=== PATIENT | male | born 1965 | race Caucasian/White ===

== ENCOUNTER 2016-10-23 17:11 | Emergency (ER) | payer MEDICAID ==
[~2016-10-23] VITALS: Ht 177.8 cm; Wt 79.4 kg
[~2016-10-23 17:11] MED LIST: DICLOFENAC 50MG50 MG PO; KEFLEX 500MG.500 MG PO; NORCO 325 MG-51 TAB PO
--- NOTE | 2016-10-23 17:39 | Emergency Room Report ---
History of Present Illness Time Seen by 1722 Presenting Problem in Triage Pt arrived:Walked Presenting Problem:LEFT KNEE PAIN NO INJURY Onset of symptoms date/time:07/13/16 or onset unknown for: Treatment Prior to Arrival: COUNCILOR Provided by: Sepsis Risk Assessment: Temp: 99.7 B/P: 122/79 MAP: 93 Pulse: 76 Resp: 20 Recent fever? N Clinical Suspician of Infection? N Mental Status: 1 - Regular (Normal Baseline) Sepsis Risk:Low Sepsis Risk Have you (or family members/close friends) recently traveled outside the [place]? N If Yes, where/when: Have you had exposure to infectious disease within the past month? N TB? Other? Specify: Source patient, RN notes reviewed, family, RN/MD Exam Limitations no limitations Comment This is a 51-year-old male presented to emergency room with LEFT knee pain for the past few months, gradually getting worse over the past 2 days to the point of him not even being able to bear weight on his LEFT lower extremity, or fully extending his LEFT knee. The patient denies any traumatic event associated with this joint pain, denies any fever, joint swelling, etc. ALLERGIES Coded Allergies: codeine (06/20/16) History Medical History General CAD? No Angina: Yes MS: No Hypertension? No Hyperlipidemia? No CHF? No DVT? No PE? No COPD? No Asthma? No Anemia? No GERD? No Gastric ulcers? No GI Bleed? No Hernia? No Thyroid Problems? No Hypothyroidism? No CVA? No Seizures? No Diabetes? No Renal Insuffiency? No End Stage Renal Disease? No UTI? No Stones? No BPH? No GB Disease: No Nephritic Syndrome? No Asplenia? No Hepatitis? No Sickle Cell Disease? No Arthritis? No Migraines? No Cataracts? No Glaucoma? No MRSA? No HIV? No TB? No Anxiety? No Depression? No Cancer? No Immunization Hx DT/Tetanus Unknown Surgical Hx Previous Surgery?Y RT WRIST BILAT HIPS LT ELBOW HEART CATH Social History Smoking Hx Smoker: Never Smoker Tobacco: No Type Chew Are you/the child exposed to second-hand smoke: No Alcohol Alcohol: No Review of Systems All Other Systems Reviewed and Negative Musculoskeletal joint pain (LEFT knee pain) Physical Exam Vital Signs Vital Signs Date Time Temp Pulse Resp B/P Pulse O2 O2 Flow FiO2 Ox Delivery Rate 10/23 1830 99.7 76 20 122/79 100 10/23 1807 99.7 76 20 122/79 100 10/23 1713 99.7 76 20 100 General Appearance normal appearance, WD/WN, mild distress Respiratory Status Yes: trachea midline, chest symmetrical, non tender chest. No: respiratory distress. Lung Sounds bilateral: normal breath sounds, lungs clear. Cardiovascular normal exam, regular rate/rhythm, no peripheral edema, no gallop, no JVD, no murmur, no rub, normal peripheral pulses Gastrointestinal normal bowel sounds, normal exam, non tender, soft, no organomegaly Extremities LEFT knee tender to palpation, positive anterior drawer test, positive Deanne maneuver, tenderness is specifically worse over the medial aspect of the LEFT knee. Neurologic alert, intraoperative neuro tech II-XII nml as tested, normal exam, oriented x 3 Mental status normal mood/affect Skin intact, normal color, warm/dry Medical Decision Making LABS/Meds/Orders Pt receiving controlled substance in ED? No Comment This on patient's physical examination and radiology findings it is likely that he has a torn meniscus. Advised patient to avoid weightbearing on her lower extremities, will place on crutches and instructed him to follow-up with one of the local orthopedic surgeons. Results/Orders Orders Procedure Date/time Status KNEE-3 VIEWS-LT 10/23 1723 Active XRAY/CT/US XRAY/CT/US XRAY knee (left) XR interpretation by reviewed by me Xray Results normal/NAD, no fracture seen Departure Departure Time of Disposition 1739 Disposition DC Home or Self Care(routine) Clinical Impression Primary Impression: Knee pain, left Qualifiers: Chronicity: acute Qualified Code: M25.562 - Pain in left knee Condition STABLE Referrals Tyshawn THAKUR,Dayron GARCIA MD, TIARRA HERNANDEZ Patient Instructions DI for Knee Pain Additional Instructions Please follow-up with one of the orthopedic surgeins listed above, call tomorrow morning in order to schedule a follow-up appointment. Take the pain medications as instructed. Discharge Counseling Counseled pt/family regarding diagnosis, test results, medications/RX, home care, follow up needs Comment Please follow-up with one of the orthopedic surgeins listed above, call tomorrow morning in order to schedule a follow-up appointment. Take the pain medications as instructed. Prescriptions Current Visit Scripts Etodolac 200 MG PO QIDP PRN pain #30 CAP ED Critical Care Critical Care No at 1938
[2016-10-23] MEDS ORDERED: ETODOLAC200 MG PO (17:41)
--- OUTSIDE RECORDS SUMMARY | 2016-10-23 17:43 | External Medical Summary Rpt ---
Author Author , FARRUKH CHADWICK Address Unknown Phone [email or web address] Care Team Providers Care Optometric Tech Name Role Phone SINGH, SINGH Unavailable Unavailable [facility], Unavailable Unavailable [facility] JR ROSANA, ROSANA, Unavailable Unavailable JR ROGELIO DUNBRA, Unavailable Unavailable ROGELIO DUNBAR [facility] Unavailable Unavailable [facility] Unavailable Unavailable H[facility]PITAL P, [facility] Unavailable Unavailable [facility] & Unavailable Unavailable [facility] & Unavailable Unavailable [facility] GLEASON BEAU, GLEASON Unavailable Unavailable BEAU GLEASON BEAU, GLEASON Unavailable Unavailable DOLLY BRUNER Unavailable Unavailable DOLLY ALBERTO Unavailable Unavailable [facility] Unavailable Unavailable ASS[facility]AT, [facility], BIAZZI NITRATOR OPERATOR [facility] Unavailable [facility] BIAZZI NITRATOR OPERATOR [facility], Unavailable Unavailable [facility] JUWAN DUCKWORTH, JUWAN Unavailable Unavailable [facility] Purpose Continuity of Care Document - 02-26-2011 through 2016 Problems Code Diagnosis DOS Provider Status R0602 SHORTNESS 06-20-2016 [facility] P R0781 PLEURODYNIA 06-20-2016 [facility] R079 CHEST PAIN 06-20-2016 [facility] R091 PLEURISY 06-20-[address] [facility] Z0100 ENCOUNTER 05-07-2016 DOLLY EXAM EYES & VISION W/O ABNORMAL FIND 82978 OTHER 10-31-2011 [facility] FATIGUE 5286 LEUKOPLAKIA 07-08-2011 GLEASON BEAU OF ORAL [place] INCLUDING TONGUE 7804 DIZZINESS 07-08-2011 G[facility] AND GIDDINESS 3814 NONSUPPRATV 06-24-2011 G[facility]ON [facility]AU OTITIS MEDIA NOT SPEC ACUT/CHRON 70873 UNSPECIFIED 06-24-2011 GLEASON BEAU SENSORINEUR AL HEARING LOSS 4785 OTHER 06-24-2011 GLEASON BEAU DISEASES OF VOCAL CORDS 46177 OTHER 06-11-2011 [facility] LUNG NOT ASSOCIAT ELSEWHERE CLASSIFIED 57223 OTHER CHEST 06-11-2011 [facility], PAIN BIAZZI NITRATOR OPERATOR [facility] 3862 VERTIGO OF 05-05-2011 [facility], CENTRAL BIAZZI NITRATOR OPERATOR ORIGIN [facility] 3532 CERVICAL 02-26-2011 LABORATORY ROOT & LESIONS NOT BIODIAGNOST ELSEWHERE ICS CLASSIFIED Medications Na ND Rx Da Fi Fi Am Da Di Ph RX Ph St me C No te ll ll ou ys ag ar # ys at rm s nt no ma ic us Or Da si cy ia de te s n re d HY 00 05 06 [address] 40 -0 -0 .0 00 L- ti OC 60 4- 2- 00 02 MA ve OD 12 20 20 24 RT ON 30 17 17 01 -A 1 95 PH CE AR TA MA NE CY NO PH #5 EN 91 5- 32 5 AM 00 04 05 20 10 00 MA Ac OX 09 -2 -1 .0 00 L- ti IC 33 1- 9- 00 07 MA ve IL 10 20 20 48 RT LI 90 17 17 38 N 5 24 PH 50 AR 0 MA MG CY CA #5 PS 91 UL E REID 00 04 05 20 5 00 MA Ac DO 90 -2 -1 .0 00 L- ti GE 46 1- 9- [address] 33 20 20 83 RT 86 17 17 91 30 0 42 PH AR MG MA CY TA BL #5 ET 91 DI 16 03 04 30 15 00 MA Ac CL 57 -2 -2 .0 00 L- ti OF 10 4- 8- 00 07 MA ve EN 20 20 20 47 RT AC 21 17 17 83 0 24 PH SO AR D MA EC CY 50 #5 91 MG TA B AM 00 12 01 20 10 00 MA Ac OX 14 -1 -1 .0 00 L- ti IC 39 6- 3- 00 07 MA ve IL 95 20 20 45 RT LI 10 16 17 91 N 1 32 PH 87 AR 5 MA MG CY TA #5 BL 91 ET BR 60 12 01 18 3 00 WA Ac OM 43 -1 -1 0. 00 L- ti PH 20 6- 3- 00 07 MA ve EN 27 20 20 0 45 RT IR 51 16 17 91 -P 6 34 PH SE AR UD MA OE CY PH ED #5 -D 91 M SY R ND 00 12 01 10 5 00 WA Ac ED 14 -1 -1 .0 00 L- ti NI 39 6- 3- 00 07 MA ve SO 73 20 20 45 RT NE 80 16 17 91 5 35 PH 20 AR MA MG CY TA #5 BL 91 ET Procedures Procedure DOS Code Location Performer Comment COMPREHEN 88964 SHE[facility] COKER SIVE 7 [facility] METABOLIC INC INC PANEL CREATINE 81658 SHEELA COKER KINASE MB 7 [facility] [place] [address] SHEELA COKER ANGIOGRAP 7 [facility] HY CHEST INC INC W/CONTRAS T/NONCONT RAST CREATINE 37645 SHE[facility] COKER KINASE 7 [facility] TOTAL INC INC ECG 64204 SHEELA COKER ROUTINE 7 [facility] ECG INC INC W/LEAST 12 LDS TRCG ONLY W/O I&R FIBRIN 37258 SHEELA COKER DGRADJ 7 [facility] PRODUCTS INC INC D-DIMER QUAL/SEMI NICHOLAS PROTHROMB 39515 SHEELA COKER IN TIME 7 [facility] INC INC NATRIURET 38589 SHEELA COKER IC 7 [facility] PEPTIDE INC INC RADIOLOGI 45308 SHEELA COKER C EXAM 7 [facility] CHEST 2 INC INC VIEWS FRONTAL&L ATERAL ECG 20993 [facility] ROUTINE 7 PHYSICIAN JR ECG S, PLLC W/LEAST 12 LDS [place] [address] SHEELA COKER TROPONIN 7 [facility] QUANTITAT INC INC LEE BLOOD 32751 SHEELA COKER COUNT 7 [facility] COMPLETE INC INC AUTO&AUTO DIFRNTL WBC CT THORAX 27253 [facility] 7 MEDICAL W/CONTRAS IMAGING T ASS MATERIAL UNCLASSIF J3490 SHEELA COKER IED DRUGS 7 [facility] INC INC THROMBOPL 40000 SHEELA COKER ASTIN 7 [facility] TIME INC INC PARTIAL PLASMA/WH OLE BLOOD DETERMINA 16944 DOLLY ROJO 7 REFRACTIV E STATE OPHTH 22141 [facility] 7 XM&EVAL COMPRE NEW PT 1/> VST COMPRE 49882 ROSIBEL GLEASON AUDIOMETR 2 [facility] Y THRESHOLD EVAL SP RECOGNIJ TYMPANOME 90553 ROSIBEL GLEASON TRY 2 [facility] RADIOLOGI 64146 [facility], C EXAM 2 BIAZZI NITRATOR OPERATOR BIAZZI NITRATOR OPERATOR CHEST 2 [facility] VIEWS CO HOS CO HOS FRONTAL&[place] [address] [facility] HEAD/BRAI 2 EIDER MANJINDER N W/O RADIOLOGY CONTRAST ASSOCIAT MATERIAL BLOOD 86621 LABORATOR LABORATOR COUNT 1 Y & Y & COMPLETE BIODIAGNO BIODIAGNO AUTO&AUTO STICS STICS DIFRNTL WBC COMPREHEN 75070 LABORATOR LABORATOR SIVE 1 Y & Y & METABOLIC BIODIAGNO BIODIAGNO PANEL STICS STICS CYANOCOBA 01915 LABORATOR LABORATOR REID 1 Y & Y & VITAMIN BIODIAGNO BIODIAGNO B-[address] [place] [address] LABORATOR LABORATOR FOLIC 1 Y & Y & ACID BIODIAGNO BIODIAGNO SERUM STICS STICS Encounters Encounter Start End Date Code Location Performer Type Date HOSPITAL [facility] - 7 7 [facility] OUTPATIEN INC T EMERGENCY 91487 [facility], 7 7 PHYSICIAN [facility] S, [facility] T VISIT HIGH/URGE NT SEVERITY EMERGENCY 76135 [facility] 7 7 [facility] T VISIT MODERATE SEVERITY OFFICE 88562 VICTOR HUGO [facility] OUTPATIEN 2 2 CLINIC GUCCI T VISIT PSC 15 MINUTES OFFICE 29034 GLEASON GLEASON OUTPATIEN 2 2 [facility] T VISIT 15 MINUTES OFFICE 44716 GLEASON GLEASON OUTPATIEN 2 2 [facility] T NEW 30 MINUTES HOSPITAL [facility], - 2 2 BIAZZI NITRATOR OPERATOR OUTPATIEN [facility], - 2 2 BIAZZI NITRATOR OPERATOR OUTPATIEN [facility] T [facility]
--- OUTSIDE RECORDS SUMMARY | 2016-10-23 17:43 | External Medical Summary Rpt ---
Author Author , FARRUKH CHADWICK Address Unknown Phone Care Team Providers Care Slitter Creaser Slotter Operator Name Role Phone SINGH, SINGH Unavailable Unavailable [facility], Unavailable Unavailable [facility] JR ROSANA, ROSANA, Unavailable Unavailable JR ROGELIO DUNBAR, Unavailable Unavailable ROGELIO DUNBAR [facility] Unavailable Unavailable INC, [facility] Unavailable Unavailable HOSPITAL P, [facility] Unavailable Unavailable [facility], [facility] & Unavailable Unavailable [facility] & Unavailable Unavailable [facility] GLEASON BEAU, GLEASON Unavailable Unavailable BEAU GLEASON BEAU, GLEASON Unavailable Unavailable DOLLY BRUNER Unavailable Unavailable DOLLY ALBERTO Unavailable Unavailable [facility] Unavailable Unavailable ASSOCIAT, [facility], CRANE HELPER [facility] Unavailable [facility]available [facility] CRANE HELPER [facility], Unavailable Unavailable [facility] JUWAN DUCKWORTH, JUWAN Unavailable Unavailable [facility] Purpose Continuity of Care Document - 02-26-2011 through 2016 Problems Code Diagnosis DOS Provider Status R0602 SHORTNESS 06-20-2016 [facility] P R0781 PLEURODYNIA 06-20-2016 [facility] R079 CHEST PAIN 06-20-2016 [facility] R091 PLEURISY 06-20-2016 [facility] GON[facility]ALE[facility] Z0100 ENCOUNTER 05-07-2016 [facility] EXAM EYES & VISION W/O ABNORMAL FIND 68253 OTHER 10-31-2011 [facility] FATIGUE 5286 LEUKOPLAKIA 07-08-2011 GLEASON BEAU OF ORAL [place]UC[place] INCLUDING TONGUE 7804 DIZZINESS 07-08-2011 GLEASON BEAU AND GIDDINESS 3814 NONSUPPRATV 06-24-2011 GLE[facility]ON BEAU OTITIS MEDIA NOT SPEC ACUT/CHRON 98902 UNSPECIFIED 06-24-2011 GLE[facility]ON BEAU SENSORINEUR AL HEARING LOSS 4785 OTHER 06-24-2011 GLEASON BEAU DISEASES OF VOCAL CORDS 35467 OTHER 06-11-2011 [place] [facility] LUNG NOT ASSOCIAT ELSEWHERE CLASSIFIED 51427 OTHER CHEST 06-11-2011 [facility], PAIN CRANE HELPER [facility] 3862 VERTIGO OF 05-05-2011 [facility], CENTRAL CRANE HELPER ORIGIN [facility] 3532 CERVICAL 02-26-2011 [...] HY 00 05 06 [address] 40 -0 -0 .0 00 L- ti OC 60 4- 2- 00 02 MA ve OD 12 20 20 24 RT ON 30 17 17 01 -A 1 95 PH CE AR TA MA AK CY NO PH #5 EN 91 5- 32 5 AM 00 04 05 20 10 00 MD Ac OX 09 -2 -1 .0 00 L- ti IC 33 1- 9- 00 07 MA ve IL 10 20 20 48 RT LI 90 17 17 38 N 5 24 PH 50 AR 0 MA MG CY CA #5 PS 91 UL E REID 00 04 05 20 5 00 MD Ac DO 90 -2 -1 .0 00 L- ti GE 46 1- 9- [address] 33 20 20 83 RT 86 17 17 91 30 0 42 PH AR MG MA CY TA BL #5 ET 91 DI 16 03 04 30 15 00 MD Ac CL 57 -2 -2 .0 00 L- ti OF 10 4- 8- 00 07 MA ve EN 20 20 20 47 RT AC 21 17 17 83 0 24 PH SO AR D MA EC CY 50 #5 91 MG TA B AM 00 12 01 20 10 00 MD Ac OX 14 -1 -1 .0 00 [...] ED #5 -D 91 M SY R HI 00 12 01 10 5 00 WA Ac ED 14 -1 -1 .0 00 L- ti NI 39 6- 3- 00 07 MA ve SO 73 20 20 45 RT NE 80 16 17 91 5 35 PH 20 AR MA MG CY TA #5 BL 91 ET Procedures Procedure DOS Code Location Performer Comment COMPREHEN 19688 SHEELA COKER SIVE 7 [facility] METABOLIC INC INC PANEL CREATINE 16089 SHEELA COKER KINASE MB 7 [facility] [place] [address] SHEELA COKER ANGIOGRAP 7 [facility] HY CHEST INC INC W/CONTRAS T/NONCONT RAST CREATINE 24951 SHEELA COKER KINASE 7 [facility] TOTAL INC INC ECG 57070 SHEELA COKER ROUTINE 7 [facility] ECG INC INC W/LEAST 12 LDS TRCG ONLY W/O I&R FIBRIN 88443 SHEELA COKER DGRADJ 7 [facility] PRODUCTS INC INC D-DIMER QUAL/SEMI NICHOLAS PROTHROMB 10087 SHEELA COKER IN TIME 7 [facility] INC INC NATRIURET 81860 SHEELA COKER IC 7 [facility] PEPTIDE INC INC RADIOLOGI 92697 SHEELA COKER C EXAM 7 [facility] CHEST 2 INC INC VIEWS FRONTAL&L ATERAL ECG 99752 SEP[facility] ROUTINE 7 PHYSICIAN JR ECG S, PLLC W/LEAST 12 LDS I&[place] [address] SHEELA COKER TROPONIN 7 [facility] QUANTITAT INC INC LEE BLOOD 45697 SHEELA COKER COUNT 7 [facility] COMPLETE INC INC AUTO&AUTO DIFRNTL WBC CT THORAX 51302 [facility] 7 MEDICAL W/CONTRAS IMAGING T ASS MATERIAL UNCLASSIF J3490 SHEELA COKER IED DRUGS 7 [facility] INC INC THROMBOPL 71738 SHEELA COKER ASTIN 7 [facility] TIME INC INC PARTIAL PLASMA/WH OLE BLOOD DETERMINA 77900 DOLLY ROJO 7 REFRACTIV E STATE OPHTH 22466 [facility] 7 XM&EVAL COMPRE NEW PT 1/> VST COMPRE 51238 ROSIBEL GLEASON AUDIOMETR 2 [facility] Y THRESHOLD EVAL SP RECOGNIJ TYMPANOME 24925 ROSIBEL GLEASON TRY 2 [facility] RADIOLOGI 90005 [facility], [facility] INC, C EXAM 2 CRANE HELPER CRANE HELPER CHEST 2 [facility]I VIEWS CO HOS CO HOS FRONTAL&[place] [address] [facility] HEAD/BRAI 2 EIDER MANJINDER N W/O RADIOLOGY CONTRAST ASSOCIAT MATERIAL BLOOD 29517 LABORATOR LABORATOR COUNT 1 Y & Y & COMPLETE BIODIAGNO BIODIAGNO AUTO&AUTO STICS STICS DIFRNTL WBC COMPREHEN 02127 LABORATOR LABORATOR SIVE 1 Y & Y & METABOLIC BIODIAGNO BIODIAGNO PANEL STICS STICS CYANOCOBA 71417 LABORATOR LABORATOR REID 1 Y & Y & VITAMIN BIODIAGNO BIODIAGNO B-[address] [place] [address] LABORATOR LABORATOR FOLIC 1 Y & Y & ACID BIODIAGNO BIODIAGNO SERUM STICS STICS Encounters Encounter Start End Date Code Location Performer Type Date HOSPITAL SHEELA - 7 7 [facility] OUTPATIEN INC T EMERGENCY 19833 [facility], 7 7 PHYSICIAN [facility], [facility] T VISIT HIGH/URGE NT SEVERITY EMERGENCY 60672 [facility] 7 7 [facility] VISIT MODERATE SEVERITY OFFICE 82958 VICTOR HUGO ECHEVERRIA OUTPATIEN 2 2 CLINIC GUCCI T VISIT PSC 15 MINUTES OFFICE 56138 GLEASON GLEASON OUTPATIEN 2 2 [facility] T VISIT 15 MINUTES OFFICE 47355 GLEASON GLEASON OUTPATIEN 2 2 [facility] T NEW 30 MINUTES [facility], - 2 2 CRANE HELPER OUTPATIEN [facility] T [facility], - 2 2 CRANE HELPER OUTPATIEN [facility] T CO HOS
--- OUTSIDE RECORDS SUMMARY | 2016-10-23 17:43 | External Medical Summary Rpt ---
Author Author , FARRUKH Roa ALEXANDERJAVIER Address Unknown Phone [email or web address] Team Providers Care Inbound Sales Representative Name Role Phone MAJO KASPER Unavailable Unavailable SINGH, SINGH Unavailable Unavailable [facility], Unavailable Unavailable [facility] AMOR HERNANDEZ, AMOR Unavailable Unavailable MARY WAYNE JR, ROSANA, Unavailable Unavailable JR ROGELIO DUNBAR, Unavailable Unavailable ROGELIO DUNBAR [facility] Unavailable Unavailable INC, [facility] Unavailable Unavailable H[facility]PITAL P, [facility] Unavailable Unavailable [facility], [facility] & Unavailable Unavailable [facility] & Unavailable Unavailable [facility] GLEASON BEAU, GLEASON Unavailable Unavailable BEAU GLEASON BEAU, GLEASON Unavailable Unavailable [facility]AU DOLLY ALBERTO Unavailable Unavailable DOLLY ALBERTO Unavailable Unavailable [facility] Unavailable Unavailable ASSOCIAT, [facility] Unavailable [facility]available [facility], [facility], Unavailable Unavailable [facility], [facility] GONZALEZ, [facility] JUWAN LYN Unavailable Unavailable GUCCI Gómez MD, Unavailable Unavailable Jose Gómez MD Purpose Continuity of Care Document - 02-26-2011 through 2016 Problems Code Diagnosis DOS Provider Status R0602 SHORTNESS 06-20-2016 [facility] P R0781 PLEURODYNIA 06-20-2016 [facility] R079 CHEST PAIN 06-20-2016 [facility] R091 PLEURISY 06-20-2016 [facility] GONZALEZ, [facility] Z0100 ENCOUNTER 05-07-2016 [facility] EXAM EYES & VISION W/O ABNORMAL FIND 413.9 413.9 10-05-2012 [facility] NEC/NOS 786.50 786.50 10-05-2012 Sheela CHEST PAIN [facility] 07856 OTHER 10-31-2011 [facility] FATIGUE 5286 LEUKOPLAKIA 07-08-2011 GLEASON BEAU OF ORAL [place]UCOS[place] INCLUDING TONGUE 7804 DIZZINESS 07-08-2011 [facility]AU AND GIDDINESS 3814 NONSUPPRATV 06-24-2011 G[facility]ON [facility]AU OTITIS MEDIA NOT SPEC ACUT/CHRON 90196 UNSPECIFIED 06-24-2011 G[facility]ON BEAU SENSORINEUR AL HEARING LOSS 4785 OTHER 06-24-2011 GLEASON BEAU DISEASES OF VOCAL CORDS 67915 OTHER 06-11-2011 [facility] DISEASES OF RADIOLOGY LUNG NOT ASSOCIAT ELSEWHERE CLASSIFIED 12848 OTHER CHEST 06-11-2011 [facility] PAIN BOOKING AGENT [facility] 3862 VERTIGO OF 05-05-2011 [facility], CENTRAL BOOKING AGENT ORIGIN [facility] 3532 CERVICAL 02-26-2011 LABORATORY ROOT & LESIONS NOT BIODIAGNOST ELSEWHERE ICS CLASSIFIED K80.20 CALCULUS OF GALLBLADDER W/O CHOLECYSTIT IS W/O OBSTRUCTION R09.1 PLEURISY R31.9 HEMATURIA, UNSPECIFIED Allergies, Adverse Reactions, Alerts Type Propensity to adverse reactions to drug Adverse Reaction to Substance Substance Reaction Severity Codeine NA-NAUSEA Unknown Medications Na ND Rx Da Fi Fi Am Da Di Ph RX Ph St me C No te ll ll ou ys ag ar # ys at rm s nt no ma ic us Or Da si cy ia de te s n re d HY 00 05 06 [address] 40 -0 -0 .0 00 L- ti OC 60 4- 2- 00 02 MA ve OD 12 20 20 24 RT ON 30 17 17 01 -A 1 95 PH CE AR TA MA AK CY NO PH #5 EN 91 5- 32 5 AM 00 04 05 20 10 00 KS Ac OX 09 -2 -1 .0 00 L- ti IC 33 1- 9- 00 07 MA ve IL 10 20 20 48 RT LI 90 17 17 38 N 5 24 PH 50 AR 0 MA MG CY CA #5 PS 91 UL E REID 00 04 05 20 5 00 KS Ac DO 90 -2 -1 .0 00 L- ti GE 46 1- 9- [address] 33 20 20 83 RT 86 17 17 91 30 0 42 PH AR MG MA CY TA BL #5 ET 91 DI 16 03 04 30 15 00 KS Ac CL 57 -2 -2 .0 00 L- ti OF 10 4- 8- 00 07 MA ve EN 20 20 20 47 RT AC 21 17 17 83 0 24 PH SO AR D MA EC CY 50 #5 91 MG TA B AM 00 12 01 20 10 00 [place] Ac OX 14 -1 -1 .0 00 [...] ED #5 -D 91 M SY R LA 00 12 01 10 5 00 WA Ac ED 14 -1 -1 .0 00 L- ti NI 39 6- 3- 00 07 MA ve SO 73 20 20 45 RT NE 80 16 17 91 5 35 PH 20 AR MA MG CY TA #5 BL 91 ET Sa 63 07 0 No li 80 -0 ne 70 9- Lo 10 20 ng Fl 07 13 er us 5 h Ac 10 ti ML ve Sy ri ng e 66 07 0 No PI 55 -0 RI 30 9- Lo N 00 20 ng 32 10 13 er 5 1 MG Ac ti TA ve BL ET Ni 00 07 0 No tr 08 -0 og 81 9- Lo ly 55 20 ng ce 24 13 er ri 9 n Ac 1 ti In ve ch Oi nt Ud p FA 63 07 0 No MO 32 -0 TI 30 9- Lo DI 73 20 ng NE 91 13 er 2 20 Ac ti MG ve /2 ML AL BA [address] 40 -0 ER 91 9- Lo IO [address] 60 13 er AT 5 IC Ac ti SA ve LI NE AL ME 00 07 0 No TO 40 -0 CL 93 9- Lo OP 41 20 ng RA 40 13 er AK 1 DE Ac ti 10 ve MG /2 ML AL Vital Signs 10-05-2012 09:04 Name Value Interpretat Reference Comment ion Range Body 98.0 [degF] Temperature BP 49 mm[Hg] Diastolic BP Systolic 114 mm[Hg] Heart 64 /min Rate/Pulse O2% 98 % Respiratory 20 /min Rate 10-05-2012 06:25 Name Value Interpretat Reference Comment ion Range BP 77 mm[Hg] Diastolic BP Systolic 123 mm[Hg] Heart 57 /min Rate/Pulse Respiratory 20 /min Rate 10-05-2012 06:04 Name Value Interpretat Reference Comment ion Range O2% 100 % Results Labs Lab Lab Date Result Refere Interp Status Commen Order Detail nces retati t Range on COMPREHENSIVE METABOLIC PANEL (10-05-2012 06:06) Glucose 100 74-106 complet 013 mg/dL ed Bld-mCn 06:06 c BUN 23 7-18 complet Bld-mCn 013 mg/dL ed c 06:06 Creat 1.0 0.8-1.3 complet SerPl-m 013 mg/dL ed Cnc 06:06 ESTIMAT 93 50-200 complet ED 013 ML/MIN ed CREATIN 06:06 INE CLEARAN CE GFR 80 Greater complet (ESTIMA 013 ML/MIN than ed JOHANNA) 06:06 60 Sodium 139 136-145 complet SerPl-s 013 mmoL/L ed Cnc 06:06 Potassi 3.9 3.5-5.1 complet um 013 mmoL/L ed SerPl-s 06:06 Cnc Chlorid 103 98-107 complet e 013 mmoL/L ed SerPl-s 06:06 Cnc CO2 29 21.0-32 complet SerPl-s 013 mmoL/L .0 ed Cnc 06:06 Calcium 8.8 8.5-10. complet 013 mg/dL 1 ed SerPl-m 06:06 Cnc Prot 6.9 6.4-8.2 complet SerPl-m 013 gm/dL ed Cnc 06:06 Albumin 4.0 3.4-5.0 complet 013 gm/dL ed SerPl-m 06:06 Cnc Globuli 2.9 1.3-3.2 complet n 013 gm/dL ed Ser-mCn 06:06 c Albumin 1.4 UNK 1.1-1.8 complet /Glob 013 ed SerPl-m 06:06 Rto Bilirub 0.7 0.2-1.0 complet 013 mg/dL ed SerPl-m 06:06 Cnc AST 10 U/L 15-37 complet SerPl-c 013 ed Cnc 06:06 ALT 34 U/L 30-65 complet SerPl-c 013 ed Cnc 06:06 ALP 93 U/L 50-136 complet SerPl-c 013 ed Cnc 06:06 CBC with AUTO DIFF (10-05-2012 06:06) WBC # 09-2 6.9 4.8-10. complet Bld 013 K/MM3 8 ed Auto 06:06 RBC # 09-2 4.64 4.6-6.2 complet Bld 013 M/mm3 ed Auto 06:06 Hgb 15.0 14.1-18 complet Bld-mCn 013 g/dL .0 ed c 06:06 Hct Fr 44.0 % 42.0-52 complet Bld 013 .0 ed 06:06 MCV RBC 94.9 fl 82.2-97 complet 013 .8 ed 06:06 MCH RBC 32.3 pg 27-31.2 complet Qn 013 ed Auto 06:06 MEAN 34.1 31.8-35 complet CORPUSC 013 g/dl .4 ed ULAR 06:06 HGB CONC RDW RBC 12.6 % 11.5-17 complet Auto 013 .5 ed 06:06 Platele 304 142-424 complet t Bld 013 K/mm3 ed Ql 06:06 Manual MEAN 7.2 fl 7.4-10. complet PLATELE 013 4 ed T 06:06 VOLUME Granulo 53.1 % 37.0-80 complet cytes 013 .0 ed Fr Bld 06:06 Auto LYMPH % 34.1 % 10-50 complet 013 ed 06:06 Monocyt 5.4 % 1.7-9.3 complet es Fr 013 ed Bld 06:06 Auto Eosinop 5.9 % 0.1-12. complet hil Fr 013 0 ed Bld 06:06 Auto Basophi 1.4 % 0.1-2.0 complet ls Fr 013 ed Bld 06:06 Auto Granulo 07-09-2 3.7 1.3-8.0 complet cytes # 013 K/mm3 ed Bld 06:06 Auto Lymphoc 10-05-2 2.4 0.7-4.5 complet ytes Fr 013 K/mm3 ed Bld 06:06 Auto Monocyt 10-05-2 0.4 0.1-1.0 complet es # 013 K/mm3 ed Bld 06:06 Auto Eosinop 10-05-2 0.4 0.0-0.4 complet hil # 013 K/mm3 ed Bld 06:06 Auto Basophi 10-05-2 0.1 0-0.2 complet ls # 013 K/MM3 ed Bld 06:06 Auto Procedures Procedure [place] [address] SHEELA COKER ANGIOGRAP 7 [facility] HY CHEST INC INC W/CONTRAS T/NONCONT RAST COMPREHEN 38953 SHEELA COKER SIVE 7 [facility] METABOLIC INC INC PANEL CREATINE 11925 SHEELA COKER KINASE MB 7 [facility] FRACTION INC INC ONLY FIBRIN 74455 SHEELA COKER DGRADJ 7 [facility] PRODUCTS INC INC D-DIMER QUAL/SEMI NICHOLAS PROTHROMB 47113 SHEELA COKER IN TIME 7 [facility] INC INC ECG 90598 SHEELA COKER ROUTINE 7 [facility] ECG INC INC W/LEAST 12 LDS TRCG ONLY W/O I&R CREATINE 66954 SHEELA COKER KINASE 7 [facility] [place] [address] SHEELA COKER TROPONIN 7 [facility] QUANTITAT INC INC LEE BLOOD 94836 SHEELA COKER COUNT 7 [facility] COMPLETE INC INC AUTO&AUTO DIFRNTL WBC RADIOLOGI 92129 [place] [facility] EXAM 7 MEDICAL CHEST 2 IMAGING VIEWS ASS FRONTAL&L ATERAL ECG 88025 SHEELA KASPER ROUTINE 7 [facility] W/LEAST P 12 LDS I&R ONLY NATRIURET 98247 SHEELA COKER IC 7 [facility] PEPTIDE INC INC THROMBOPL 79627 SHEELA COKER ASTIN 7 [facility] TIME INC INC PARTIAL PLASMA/WH OLE BLOOD CT THORAX [address]4076 [facility] S[facility]H 7 MEDICAL W/CONTRAS IMAGING T ASS MATERIAL UNCLASSIF J3490 SHEELA COKER IED DRUGS 7 [facility] INC INC DETERMINA 51738 DOLLY ALBERTO TION 7 [facility] 79808 [facility] 7 XM&EVAL COMPRE NEW PT 1/> VST COMPRE 63497 ROSIBEL GLEASON AUDIOMETR 2 [facility] Y THRESHOLD EVAL SP RECOGNIJ TYMPANOME 38144 RSOIBEL GLEASON TRY 2 [facility] RADIOLOGI 47302 [facility] C EXAM 2 MARY CHEST 2 RADIOLOGY VIEWS ASSOCIAT FRONTAL&[place] [address] [employer] HEAD/BRAI 2 EIDER MANJINDER N W/O RADIOLOGY CONTRAST ASSOCIAT MATERIAL BLOOD 46403 LABORATOR LABORATOR COUNT 1 Y & Y & COMPLETE BIODIAGNO BIODIAGNO AUTO&AUTO STICS STICS DIFRNTL WBC CYANOCOBA 59655 LABORATOR LABORATOR REID 1 Y & Y & VITAMIN BIODIAGNO BIODIAGNO B-12 [place] [address] LABORATOR LABORATOR FOLIC 1 Y & Y & ACID BIODIAGNO BIODIAGNO SERUM STICS STICS COMPREHEN 95480 LABORATOR LABORATOR SIVE 1 Y & Y & METABOLIC BIODIAGNO BIODIAGNO PANEL STICS STICS Encounters Encounter Start End Date Code Location Performer Type Date EMERGENCY 13320 SHEELA 7 7 [facility] DEPARTMEN INC T VISIT MODERATE [facility]VERITY HOSPITAL SHEELA - 7 7 [facility] OUTPATIEN INC T EMERGENCY 39597 Any MENDOZA 7 PHYSICIAN [facility] S, [facility] T VISIT HIGH/URGE NT SEVERITY Emergency VIVEK Gómez MD (ER) 3 05:50 3 09:15 [facility] OFFICE 90572 [facility] OUTPATIEN 2 2 CLINIC GUCCI T VISIT PSC 15 MINUTES OFFICE 55205 ROSIBEL GLEASON OUTPATIEN 2 2 [facility] T VISIT 15 MINUTES OFFICE 59432 GLEASON GLEASON OUTPATIEN 2 2 [facility] T NEW 30 MINUTES [facility], - 2 2 BOOKING AGENT OUTPATIEN [facility] T [facility], - 2 2 BOOKING AGENT OUTPATIEN CHIDI T CO HOS
--- OUTSIDE RECORDS SUMMARY | 2016-10-23 17:43 | External Medical Summary Rpt ---
Author Author , FARRUKH Roa ALEXANDERJAVIER Address Unknown Phone [email or web address] Care Team Providers Care Director Of Clinical Applications Name Role Phone MAJO KASPER Unavailable Unavailable SINGH, SINGH Unavailable [facility], [facility] AMOR HERNANDEZ, AMOR Unavailable Unavailable MARY WAYNE JR, ROSANA, Unavailable Unavailable JR ROGELIO DUNBAR, Unavailable Unavailable ROGELIO DUNBAR [facility] Unavailable Unavailable INC, [facility] Unavailable Unavailable HOSPITAL P, [facility] Unavailable Unavailable [facility], [facility] & Unavailable Unavailable [facility] & Unavailable Unavailable [facility] GLEASON BEAU, GLEASON Unavailable Unavailable BEAU GLEASON BEAU, GLEASON Unavailable Unavailable [facility] DOLLY ALBERTO Unavailable Unavailable DOLLY ALBERTO Unavailable Unavailable [facility] Unavailable Unavailable ASSOCIAT, [facility], SENIOR RISK ANALYST [facility] Unavailable Unavailable [facility], [facility] SENIOR RISK ANALYST [facility], Unavailable Unavailable [facility], [facility] GONZALEZ, [facility] JUWAN LYN Unavailable Unavailable GUCCI Gómez MD, Unavailable Unavailable Jose Gómez MD Purpose Continuity of Care Document - 02-26-2011 through 2016 Problems Code Diagnosis DOS Provider Status R0602 SHORTNESS 06-20-2016 [facility] P R0781 PLEURODYNIA 06-20-2016 [facility] R079 CHEST PAIN 06-20-2016 [facility] R091 PLEURISY 06-20-2016 [facility] GONZALEZ, [facility] Z0100 ENCOUNTER 05-07-2016 [facility] EXAM EYES & VISION W/O ABNORMAL FIND 413.9 413.9 10-05-2012 [facility] NEC/NOS 786.50 786.50 10-05-2012 Sheela CHEST PAIN [facility] [address]4825 OTHER 10-31-2011 [facility] FATIGUE 5286 LEUKOPLAKIA 07-08-2011 GLEASON BEAU OF ORAL [place]UCOSA INCLUDING TONGUE 7804 DIZZINESS 07-08-2011 GLEASON BEAU AND GIDDINESS 3814 NONSUPPRATV 06-24-2011 [facility] OTITIS MEDIA NOT SPEC ACUT/CHRON 76573 UNSPECIFIED 06-24-2011 GLE[facility]ON BEAU SENSORINEUR AL HEARING LOSS 4785 OTHER 06-24-2011 GLEASON BEAU DISEASES OF VOCAL CORDS 16343 OTHER 06-11-2011 [facility] DISEASES OF RADIOLOGY LUNG NOT ASSOCIAT ELSEWHERE CLASSIFIED 18446 OTHER CHEST 06-11-2011 [facility], PAIN SENIOR RISK ANALYST [facility] 3862 VERTIGO OF 05-05-2011 [facility], CENTRAL SENIOR RISK ANALYST ORIGIN [facility] 3532 CERVICAL 02-26-2011 [...] HY 00 05 06 [address] -0 -0 .0 00 L- ti OC 60 4- 2- 00 02 MA ve OD 12 20 20 24 RT ON 30 17 17 01 -A 1 95 PH CE AR TA MA MN CY NO PH #5 EN 91 5- 32 5 AM 00 04 05 20 10 00 [place] Ac OX 09 -2 -1 .0 00 L- ti IC 33 1- 9- 00 07 MA ve IL 10 20 20 48 RT LI 90 17 17 38 N 5 24 PH 50 AR 0 MA MG CY CA #5 PS 91 UL E REID 00 04 05 20 5 00 [place] Ac DO 90 -2 -1 .0 00 L- ti GE 46 1- 9- [address] 33 20 20 83 RT 86 17 17 91 30 0 42 PH AR MG MA CY TA BL #5 ET 91 DI 16 03 04 30 15 00 [place] Ac CL 57 -2 -2 .0 00 [...] ED #5 -D 91 M SY R GA 00 12 01 10 5 00 WA [...] 41 20 ng RA 40 13 er MN 1 DE Ac ti 10 ve MG [...] Procedure [place] [address] SHEELA COKER ANGIOGRAP 7 [facility] HY CHEST INC INC W/CONTRAS T/NONCONT RAST COMPREHEN 39781 SHEELA COKER SIVE 7 [facility] METABOLIC INC INC PANEL CREATINE 84879 SHEELA COKER KINASE MB 7 [facility] FRACTION INC INC ONLY FIBRIN 01393 SHEELA COKER DGRADJ 7 [facility] PRODUCTS INC INC D-DIMER QUAL/SEMI NICHOLAS PROTHROMB 35214 SHEELA COKER IN TIME 7 [facility] INC INC ECG 16645 SHEELA COKER ROUTINE 7 [facility] ECG INC INC W/LEAST 12 LDS TRCG ONLY W/O I&R CREATINE 67138 SHEELA COKER KINASE 7 [facility] [address] SHEELA COKER TROPONIN 7 [facility] QUANTITAT INC INC LEE BLOOD 98518 SHEELA COKER COUNT 7 [facility] COMPLETE INC INC AUTO&AUTO DIFRNTL WBC RADIOLOGI 58203 [place] [facility] EXAM 7 MEDICAL CHEST 2 IMAGING VIEWS ASS FRONTAL&L ATERAL ECG 09064 SHEELA KASPER ROUTINE 7 [facility] W/LEAST P 12 LDS I&R ONLY NATRIURET 29716 SHEELA COKER IC 7 [facility] PEPTIDE INC INC THROMBOPL 74731 SHEELA COKER ASTIN 7 [facility] TIME INC INC PARTIAL PLASMA/WH OLE BLOOD CT THORAX 77550 [facility]INGH 7 MEDICAL W/CONTRAS IMAGING T ASS MATERIAL UNCLASSIF J3490 SHEELA COKER IED DRUGS 7 [facility] INC INC DETERMINA 59530 DOLLY ALBERTO TION 7 REFRACTIV E STATE OPHTH 78352 [facility] 7 XM&EVAL COMPRE NEW PT 1/> VST COMPRE 41383 ROSIBEL GLEASON AUDIOMETR 2 [facility] Y THRESHOLD EVAL SP RECOGNIJ TYMPANOME 73749 ROSIBEL GLEASON TRY 2 [facility] RADI[facility] 75105 [facility] C EXAM 2 MARY CHEST 2 RADIOLOGY VIEWS ASSOCIAT FRONTAL&[place] [address] [facility] HEAD/BRAI 2 EIDER MANJINDER N W/O RADIOLOGY CONTRAST ASSOCIAT MATERIAL BLOOD 25671 LABORATOR LABORATOR COUNT 1 Y & Y & COMPLETE BIODIAGNO BIODIAGNO AUTO&AUTO STICS STICS DIFRNTL WBC CYANOCOBA 54523 LABORATOR LABORATOR REID 1 Y & Y & VITAMIN BIODIAGNO BIODIAGNO B-[address] [place] [address] LABORATOR LABORATOR FOLIC 1 Y & Y & ACID BIODIAGNO BIODIAGNO SERUM STICS STICS COMPREHEN 70464 LABORATOR LABORATOR SIVE 1 Y & Y & METABOLIC BIODIAGNO BIODIAGNO PANEL STICS STICS Encounters Encounter Start End Date Code Location Performer Type Date EMERGENCY 03950 SHEELA 7 7 [facility] DEPARTMEN INC T VISIT MODERATE SEVERITY HOSPITAL SHEELA - 7 7 [facility] OUTPATIEN INC T EMERGENCY 83135 Any MENDOZA 7 PHYSICIAN [facility], [facility] T VISIT HIGH/URGE NT SEVERITY Emergency VIVEK Gómez MD (ER) 3 05:50 3 09:15 [facility] OFFICE 88515 [facility] OUTPATIEN 2 2 CLINIC GUCCI T VISIT PSC 15 MINUTES OFFICE 34431 ROSIBEL GLEASON OUTPATIEN 2 2 [facility] T VISIT 15 MINUTES OFFICE 96413 GLEASON GLEASON OUTPATIEN 2 2 [facility] T [facility], - 2 2 SENIOR RISK ANALYST OUTPATIEN [facility]I T [facility] INC, - 2 2 SENIOR RISK ANALYST OUTPATIEN CHIDI T CO HOS
--- OUTSIDE RECORDS SUMMARY | 2016-10-23 17:44 | External Medical Summary Rpt ---
Demographics Preferred Language Qatari Marital Status Unknown Baptism Affiliation Unknown Race Unknown Ethnic Group Unknown Author Author , FARRUKH CHADWICK Address Unknown Phone Immunization Unable to retrieve immunization data due to connection failure with Immunization Registry. Please try again later.
--- OUTSIDE RECORDS SUMMARY | 2016-10-23 17:44 | External Medical Summary Rpt ---
Author Author FARRUKH [place], FARRUKH [employer] Organization [employer] Address Unknown Phone Unavailable
--- OUTSIDE RECORDS SUMMARY | 2016-10-23 17:44 | External Medical Summary Rpt ---
Demographics Preferred Language Portuguese Marital Status Unknown Mu-Ism Affiliation Unknown Race Unknown Ethnic Group Unknown Author Author , FARRUKH CHADWICK Address Unknown Phone Immunization Unable to retrieve immunization data due to connection failure with Immunization Registry. Please try again later.
[2016-10-23 18:30] VITALS: BP 122/79
--- NOTE | 2016-10-23 19:40 | RADIOLOGY REPORT PS360 ---
KNEE-3 VIEWS-LT HISTORY: Left knee pain pain ORDERING PHYSICIAN: Ever Thakkar MD PATIENT AGE: 51 years COMPARISON: None FINDINGS: No fracture or dislocation. No lytic or blastic change. Normal mineralization. There are mild osteoarthritic changes of the medial compartment and patellofemoral joint with faint chondrocalcinosis of the menisci. No other significant findings IMPRESSION: Minimal osteoarthritic change with pain chondrocalcinosis of the menisci
== END 2016-10-23 18:31 | disposition home or self-care (01) ==
LOC: ER 17:11
DX: M25.562 Pain in left knee (principal)